=== PATIENT | male | born 1960 | race Caucasian/White ===

== ENCOUNTER → 2017-01-27 | Outpatient (CLI) | payer BC ==
[~2017-01-27] MED LIST: ATEN-173 PO; EZET10TA63 PO; IBUP800T2 OR; MEDLIST; ZCRUNK
== END | disposition home or self-care (01) ==
LOC: C.RDSM 10:51
PROVIDERS: ATTEND Family Medicine Sports Medicine
DX: M54.2 Cervicalgia (principal)